=== PATIENT | female | born 1960 | race Caucasian/White ===

== ENCOUNTER 2020-10-29 14:33 | Outpatient (CLI) | payer SELFPAY ==
--- NOTE | 2020-10-29 14:44 | USCV_ITS ---
Julianna Gonzalez Age: 60 Gender: F : 1960 Exam Date: 10/29/2020 15:03 Ordering Phys: Sharron Varela Technologist: Christelle Thurman Exam Location: [facility] – [place] Indication: Cellulitis of right lower extremity HISTORY: Lower extremity swelling. PROCEDURES: Comparison: none available. Venous duplex imaging was performed in bilateral lower extremities. The following venous structures were evaluated: common femoral vein, profunda vein, proximal portion of the greater saphenous vein, superficial femoral vein, and the popliteal vein. In addition, the posterior tibial and peroneal trunk were evaluated. Serial compression, augmentation maneuvers, and spectral Doppler flow evaluation were performed. FINDINGS: No evidence of DVT seen in any vessel visualized at this time. Calf edema noted bilaterally. CONCLUSIONS No evidence of right lower extremity DVT. No evidence of left lower extremity DVT. Bilateral calf edema Prominent inguinal lymph nodes bilaterally Miguel Conroy MD (Electronically Signed) Final Date: 30 October 2020 12:35 S
== END 2020-10-29 14:34 | disposition home or self-care (01) ==
LOC: RAD 14:39
PROVIDERS: PCP Nurse Practitioner Family; Visit Provider Nurse Practitioner Family
DX: L03.115 Cellulitis of right lower limb (principal); R60.0 Localized edema
CPT/HCPCS: 93970

== ENCOUNTER → 2020-11-14 08:43 | Outpatient (BNVA) | payer SELFPAY | PROVIDERS: PCP Nurse Practitioner Family; Visit Provider Nurse Practitioner Family | DX: I10 Essential (primary) hypertension (principal); R60.0 Localized edema; L03.115 Cellulitis of right lower limb; L03.116 Cellulitis of left lower limb | CPT/HCPCS: 80053; 81000; 83880; 84443; 84550; 85025; 86038 ==

== ENCOUNTER → 2020-12-24 15:22 | Outpatient (BNVA) | payer SELFPAY | PROVIDERS: PCP Nurse Practitioner Family; Visit Provider Internal Medicine | DX: G62.9 Polyneuropathy, unspecified (principal); M70.61 Trochanteric bursitis, right hip | CPT/HCPCS: 80053; 82607; 82746; 83036; 83550; 83921; 84443; 85025 ==